=== PATIENT | female | born 1995 ===

== ENCOUNTER 2019-01-08 16:29 | Outpatient (CLI) | payer OTHER ==
[~2019-01-08] VITALS: Ht 170.2 cm; Wt 90.7 kg
== END 2019-01-08 16:40 | disposition home or self-care (01) ==
LOC: OFIC 805 16:29
DX: J36 Peritonsillar abscess (principal)

== ENCOUNTER 2019-01-08 17:05 | Outpatient (CLI) | payer OTHER | END 2019-01-08 17:20 | disposition home or self-care (01) | LOC: LAB 17:05 | DX: J03.80 Acute tonsillitis due to other specified organisms (principal) ==

== ENCOUNTER 2019-01-15 14:05 | Outpatient (CLI) | payer OTHER ==
[~2019-01-15] VITALS: Ht 152.4 cm; Wt 90.7 kg
== END 2019-01-15 14:20 | disposition home or self-care (01) ==
LOC: OFIC 805 14:05
DX: J36 Peritonsillar abscess (principal)

== ENCOUNTER 2019-06-07 11:09 | Outpatient (CLI) | payer OTHER ==
[~2019-06-07] VITALS: Ht 152.4 cm; Wt 90.7 kg
== END 2019-06-07 18:28 | disposition home or self-care (01) ==
LOC: OFIC 805 11:09
DX: J36 Peritonsillar abscess (principal); R22.1 Localized swelling, mass and lump, neck

== ENCOUNTER → 2020-12-15 | Outpatient (CLI) | payer OTHER | END | disposition home or self-care (01) | LOC: OFIC 805 11:30 | PROVIDERS: ATTEND Otolaryngology | DX: J38.2 Nodules of vocal cords (principal); K21.9 Gastro-esophageal reflux disease without esophagitis ==

== ENCOUNTER 2021-03-26 10:45 | Outpatient (CLI) | payer OTHER | END 2021-03-26 11:06 | disposition home or self-care (01) | LOC: OFIC 805 10:45 | PROVIDERS: ATTEND Otolaryngology | DX: K21.9 Gastro-esophageal reflux disease without esophagitis (principal); J38.2 Nodules of vocal cords ==